=== PATIENT | male | born 1980 | race Caucasian/White ===

== ENCOUNTER 2019-03-17 07:00 | Outpatient (CLI) | payer BC, SELFPAY ==
--- NOTE | 2019-03-17 07:08 | ECG_ITS ---
NAME OF STUDY: LEXISCAN SESTAMIBI STRESS TEST INDICATION: Chest Pain PROCEDURE: At the baseline, the blood pressure was 133/84 mmHg, oxygen saturation 96% with a heart rate of 75 bpm. The electrocardiogram showed sinus rhythm, right axis deviation with nonspecific ST-T wave changes. The Lexiscan was infused over a period of 20 seconds. A total of 0.4 milligrams of Lexiscan was infused. The stress phase was continued for a total of 5 minutes. Heart rate at the end of the stress phase was 93 bpm, oxygen saturation 96% with a blood pressure 116/80 mmHg. The EKG at the peak infusion revealed no significant ST-T wave changes. Sestamibi was injected 20 seconds after the Lexiscan infusion. Blood pressure at the end of the recovery phase was 120/82 mmHg, oxygen saturation 95% with a heart rate of 95 beats per minute. CONCLUSION: 1. No significant EKG changes with the LexiScan infusion. 2. No LexiScan induced chest pain or cardiac arrhythmia. 3. Normal blood pressure and heart rate response. 4. Sestamibi/sestamibi perfusion scan pending; see separate report. Electronically Signed On 03-17-2019 12:59:25 DISPLAY CARVER by Meena Chicas M.D. [email or web address]
--- NOTE | 2019-03-17 07:09 | NMCV_ITS ---
Xander Garo Age: 39 Gender: M : 1980 Exam Date: 03/17/2019 07:57 Ordering Phys: Nia Ureña DO Technologist: JUAN Mroeno Exam Location: [facility] Indications: Chest pain, at risk of CAD STRESS TEST Please see separate stress test report in [facility] for full findings IMAGE PROTOCOL Rest/Stress 1 Lexiscan Day Radiopharmaceutical Dose (mCi) Administration Site Administered by Rest: Tc-99m 10.5 IV JUAN Moreno Stress:Tc-99m 28.8 IV JUAN Moreno Rest: 03/17/2019 60 Discovery 630 Stress: 03/17/2019 60 Discovery 630 0.4mg Lexiscan. Images obtained in supine and prone position. SPECT RESULTS Technical Quality: Good Raw Data Analysis: Normal, Subdiaphragmatic activity Image Corrections: No attenuation or motion correction applied Summed Stress Score: 2 Summed Rest Score: 3 Summed Difference Score: 0 PERFUSION FINDINGS Very small size perfusion abnormality of mild severity of apical lateral and apical linda on rest images with improved tracer uptake in apical lateral wall on stress images. This is suggestive of attenuation artifact. FUNCTIONAL RESULTS (calculated via Gated SPECT) Stress Image LV EF (%): 59 Stress EDV (mL):92 TID: 0.92 Stress ESV (mL):38 FUNCTIONAL FINDINGS: The left ventricle is normal in size. Transient Ischemia Dilatation of 0.92. There is normal left ventricular systolic function. The left ventricular ejection fraction is normal with a value of 59%. There is normal left ventricular wall thickening. Normal end-diastolic and end-systolic volumes. IMPRESSIONS 1. Myocardial perfusion imaging is normal. Attenuation artifact noted in the apical lateral wall. Fixed apical thinning artifact. 2. Overall left ventricular systolic function is normal without regional wall motion abnormalities. 3. The left ventricular ejection fraction is normal with a value of 59%. 4. No coronary ischemia based on the study. Meena Chicas MD (Electronically Signed) Final Date: 17 March 2019 13:53 S
[2019-03-17 07:22] VITALS: BMI 36.8
[2019-03-17] MEDS: regadenoson 0.4 Mg/5 ml Syringe IVP (09:34)
[2019-03-17 09:36] VITALS: BP 114/72; PULSE 100
== END 2019-03-17 07:01 | disposition home or self-care (01) ==
PROVIDERS: Visit Provider Family Medicine
DX: R07.89 Other chest pain (principal); Z91.89 Other specified personal risk factors, not elsewhere classified
CPT/HCPCS: 78452; 93017; A9500; J2785